=== PATIENT | female | born 1995 | race American Indian/Alaskan Native ===

== ENCOUNTER 2018-11-25 18:09 | Emergency (ER) | payer OTHER ==
--- NOTE | 2018-11-25 18:27 | Emergency Department Report ---
Blank Doc - Documentation Documentation: 23 y old female presents with low pelvic pain x 11/09/18 when her cycle started states iud insert 2012 denies f/c/n/v/d ua,upt ACC eval
[2018-11-25 18:45] LABS: Bacteria,Urine 1+ /HPF (Negative); Bilirubin,Urine NEG (Negative); Blood,Urine NEG (Negative); Color,Urine Yellow (Yellow); Mucus,Urine 1+ /HPF; Protein,Urine <15 mg/dL mg/dL (Negative); Urobilinogen,Urine < 2.0 mg/dL (<2.0)
[2018-11-25 18:53] LABS: HCG Qualitative,Urine Negative (Negative)
--- NOTE | 2018-11-25 21:31 | Emergency Department Report ---
ED Female HPI - General Chief complaint: Abdominal Pain Stated complaint: LOWER ABD PAIN Time Seen by Provider: 11/25/18 18:14 Source: patient Mode of arrival: Ambulatory Limitations: No Limitations - History of Present Illness Initial comments: pt is a 23 yo female who presents to the ED with c/o lower pelvic pain that began two weeks ago. She states that her boyfriend is having dysuria, and she is concerned for STDs. SHe denies any N/V/D, fever, vaginal discharge, blisters or lesions on the vagina, or urinary sx. LNMP: November 10, pt has a IUD. - Related Data Previous Rx's Medication Instructions Recorded Last Taken Type Sulfamethoxazole/Trimethoprim 1 each PO BID 3 Days #6 tablet 11/25/18 Unknown Rx [Bactrim DS TAB] metroNIDAZOLE [Flagyl] 500 mg PO BID 7 Days #14 tab 11/25/18 Unknown Rx Allergies Allergy/AdvReac Type Severity Reaction Status Date / Time codeine Allergy Unknown Verified 11/25/18 18:12 Penicillins Allergy Unknown Verified 11/25/18 18:12 ED Review of Systems ROS: Stated complaint: LOWER ABD PAIN Other details as noted in HPI Comment: All other systems reviewed and negative ED Past Medical Hx - Surgical History Past Surgical History?: No - Social History Smoking Status: Never Smoker Substance Use Type: Alcohol - Medications Home Medications: Home Medications Medication Instructions Recorded Confirmed Last Taken Type Sulfamethoxazole/Trimethoprim 1 each PO BID 3 Days #6 tablet 11/25/18 Unknown Rx [Bactrim DS TAB] metroNIDAZOLE [Flagyl] 500 mg PO BID 7 Days #14 tab 11/25/18 Unknown Rx ED Physical Exam - General Limitations: No Limitations General appearance: alert, in no apparent distress - Head Head exam: Present: atraumatic, normocephalic - Eye Eye exam: Present: normal appearance - Respiratory Respiratory exam: Present: normal lung sounds bilaterally. Absent: respiratory distress, wheezes, rales, rhonchi, stridor, chest wall tenderness, accessory muscle use, decreased breath sounds, prolonged expiratory - Cardiovascular Cardiovascular Exam: Present: regular rate, normal rhythm, normal heart sounds. Absent: systolic murmur, diastolic murmur, rubs, gallop - GI/Abdominal GI/Abdominal exam: Present: soft, normal bowel sounds. Absent: distended, tenderness, guarding, rebound, rigid - External exam: Present: normal external exam. Absent: erythema, swelling, lesions, lacerations, ecchymosis, bleeding Speculum exam: Present: vaginal discharge (barrios, foul smelling discharge), cervical discharge (barrios, foul smelling discharge), other (environmental services specialist: MARTELL arias). Absent: vaginal bleeding, foreign body, tissue, laceration Bi-manual exam: Present: normal bi-manual exam. Absent: cervical motion tendernes, adnexal tenderness, adnexal mass, uterine enlargement, uterine tenderness - Neurological Exam Neurological exam: Present: alert, oriented X3 - Psychiatric Psychiatric exam: Present: normal affect, normal mood - Skin Skin exam: Present: warm, dry ED Course Vital Signs 11/25/18 11/25/18 18:13 22:00 Temperature 98.8 F 98.0 F Pulse Rate 102 H 100 H Respiratory 18 18 Rate Blood Pressure 142/88 Blood Pressure 129/86 [Left] O2 Sat by Pulse 100 100 Oximetry ED Medical Decision Making - Lab Data Lab Results 11/25/18 Range/Units 18:25 Urine Color Yellow (Yellow) Urine Turbidity Slightly-cloudy (Clear) Urine pH 5.0 (5.0-7.0) Ur Specific [place] 1.021 (1.003-1.030) Urine Protein <15 mg/dl (Negative) mg/dL Urine Glucose (UA) Neg (Negative) mg/dL Urine Ketones Neg (Negative) mg/dL Urine Blood Neg (Negative) Urine Nitrite Neg (Negative) Urine Bilirubin Neg (Negative) Urine Urobilinogen < 2.0 (<2.0) mg/dL Ur Leukocyte Esterase Lg (Negative) Urine WBC (Auto) 11.0 H (0.0-6.0) /HPF Urine RBC (Auto) 5.0 (0.0-6.0) /HPF U Epithel Cells (Auto) 9.0 (0-13.0) /HPF Urine Bacteria (Auto) 1+ (Negative) /HPF Urine Mucus 1+ /HPF Urine HCG, Qual Negative (Negative) - Medical Decision Making pt is a 23 yo female who presents to the ED with c/o lower pelvic pain that began two weeks ago. She states that her boyfriend is having dysuria, and she is concerned for STDs. SHe denies any N/V/D, fever, vaginal discharge, blisters or lesions on the vagina, or urinary sx. LNMP: November 10, pt has a IUD. on exam pt has barrios, foul smelling discharge present. environmental services specialist: MARTELL arias. wet prep performed which shows evidence of bacterial vaginosis. pt also swabbed for gonorrhea and chlamydia and given azithromycin and ceftriaxone while in the emergency department. UA shows evidence of UTI. pt given prescription for bactrim and flagyl. discussed to please take all medication as prescribed. drink plenty of water. do not drink alcohol while taking medication. follow up with a primary care doctor in the next 2-3 days. may check back with medical records in 1 week for results of test. abstain from sexual intercourse for 10 days. have partner tested and treated as well. return to the emergency room for any new or worsening symptoms. if concerned for any other STDs please be seen by health department or primary care doctor. Critical care attestation.: If time is entered above; I have spent that time in minutes in the direct care of this critically ill patient, excluding procedure time. ED Disposition Clinical Impression: Bacterial vaginosis, Screen for STD (sexually transmitted disease) UTI (urinary tract infection) Qualifiers: Urinary tract infection type: acute cystitis Hematuria presence: without hematuria Qualified Code(s): N30.00 - Acute cystitis without hematuria Disposition: TO HOME OR SELFCARE Is pt being admited?: No Does the pt Need Aspirin: No Condition: Stable Instructions: Bacterial Vaginosis (ED), Urinary Tract Infection in Women (ED) Additional Instructions: please take all medication as prescribed. drink plenty of water. do not drink alcohol while taking medication. follow up with a primary care doctor in the next 2-3 days. may check back with medical records in 1 week for results of test. abstain from sexual intercourse for 10 days. have partner tested and treated as well. return to the emergency room for any new or worsening symptoms. if concerned for any other STDs please be seen by health department or primary care doctor. Prescriptions: Sulfamethoxazole/Trimethoprim [Bactrim DS TAB] 1 each PO BID 3 Days #6 tablet metroNIDAZOLE [Flagyl] 500 mg PO BID 7 Days #14 tab Referrals: RACHELLE COLE MD [Primary Care Provider] - 2-3 Days [facility] [Outside] - 2-3 Days Forms: STI Treatment and Prevention Time of Disposition: 22:44 Print Language: VINCENTIAN
[2018-11-25] MEDS ORDERED: ZITHROMAX PO ONE (21:51)
[2018-11-25] MEDS ORDERED: ROCEPHIN IM ONE (21:53)
[2018-11-25] MEDS ORDERED: XYLOCAINE 1% MPF 5 mL INFILTRATI ONE (21:53)
[2018-11-25 22:01] VITALS: BP 129/86
== END 2018-11-25 23:02 | disposition home or self-care (01) ==
LOC: ED 18:09
DX: N39.0 Urinary tract infection, site not specified (principal); N76.0 Acute vaginitis; B96.89 Other specified bacterial agents as the cause of diseases classified elsewhere; Z88.5 Allergy status to narcotic agent; Z88.0 Allergy status to penicillin
CPT/HCPCS: 81001; 81025; 87086; 87210; 87591; 96372; 99283; J0696